=== PATIENT | female | born 1990 | race Caucasian/White ===

== ENCOUNTER 2022-07-16 21:05 | Emergency (ER) | payer BC ==
[~2022-07-16] VITALS: Ht 154.9 cm; Wt 68.0 kg
[2022-07-16 21:10] VITALS: BP 149/90
--- NOTE | 2022-07-16 21:13 | NUR ---
TO LOBBY A/W BED AMBULATORY
[2022-07-16 21:15] VITALS: BP 149/90
[2022-07-16] MEDS ORDERED: IBUPROFEN 600 MG TAB PO ONE (22:00)
[2022-07-16] MEDS ORDERED: AMOXICILLIN 500 MG CAP PO ONE (22:00)
[2022-07-16] MEDS ORDERED: NAPR-54 PO (22:24)
[2022-07-16] MEDS ORDERED: CLIN300C52 PO (22:24)
--- NOTE | 2022-07-16 22:28 | NUR ---
PT CLEARED FOR D/C. ALL INSTRUCTIONS AND MEDICATION ADMINISTRATON GIVEN BY DR. MORRISON. RX OF CLINDAMYCIN AND NAPROXEN PROVIDED.
== END 2022-07-16 22:28 | disposition home or self-care (01) ==
LOC: MED 21:05
DX: K02.9 Dental caries, unspecified (principal); Z79.899 Other long term (current) drug therapy
CPT/HCPCS: 99283

== ENCOUNTER 2022-11-21 20:18 | Emergency (ER) | payer BC ==
[~2022-11-21 20:18] MED LIST: CLIN300C52 PO; NAPR-54 PO
--- NOTE | 2022-11-21 20:40 | NUR ---
CALLED PATIENT MULTIPLE TIMES. NO ANSWER. LWBS
== END 2022-11-21 20:40 | disposition left against medical advice (07) ==
LOC: MED 20:18
DX: R11.10 Vomiting, unspecified (principal); Z53.21 Procedure and treatment not carried out due to patient leaving prior to being seen by health care provider